=== PATIENT | male | born 2005 | race Caucasian/White ===

== ENCOUNTER 2024-12-10 23:47 | Emergency (ER) | payer MEDICAID, OTHER ==
[~2024-12-10] VITALS: Ht 182.9 cm; Wt 86.7 kg
[2024-12-11 00:30] VITALS: BP 95/64
--- NOTE | 2024-12-11 00:31 | Physician Documentation ---
History of Present Illness ~ Chief Complaint: Rash Stated Complaint: POISON OAK Time Seen by MD: 00:31 HPI Patient presents to the emergency room with chief complaint of poison oak. He states he was working in some brush few days ago and then developed poison oak. Using some Benadryl and some topical remedies. Medication Reconciliation Allergies: Coded Allergies: No Known Allergies (Unverified , 12/11/24) Past Medical History Past Medical History: No Pertinent History Past Surgical History: noncontributory Alcohol Use: None Drug Use: none Lives In: Home Occupation: child Review of Systems ROS All review of systems negative except as per HPI Physical Exam Vital Signs: Temperature: 98.2, Source: Oral, Heart Rate: 64, Respiratory Rate: 16, BP: 95/64, Pulse Oximetry: 98, Weight: 86.700 Oxygen Flow Rate: 0 Physical Exam General: Patient is awake, alert, oriented x4 in no acute distress Head: Normocephalic and atraumatic. Eyes: Conjunctival normal. EOMI. PERRL. ENT: Mucous membranes moist. Neck: Supple, trachea is midline. Chest: Clear to auscultation bilaterally without rales, rhonchi, or wheezes. There is no accessory muscle use or retractions. Cardiac: RRR without murmurs, gallops, or rubs. Skin: Patient is is covered on all four extremities and torso with poison oak some areas of blistering. No evidence of cellulitis Progress Results/Orders Results/Orders Vital Signs 12/11/24 12/11/24 00:13 00:30 Temp 98.2 Pulse 60 64 Resp 16 16 B/P (MAP) 101/55 95/64 (74) Pulse Ox 99 98 O2 Flow Rate 0 Medical Decision Making Findings Patient presents to the emergency room with rash as per HPI. Differentials include but are not limited to scabies poison oak contact dermatitis allergic reaction drug reaction. Given patient's history and physical exam symptoms are consistent with poison oak and we will treat him accordingly. ER precautions reviewed regarding signs of infection. Departure Disposition: HOME / SELF CARE / HOMELESS Impression: Primary Impression: Poison oak Condition: Stable Discharge Instructions: Poison [place] Dermatitis Additional Instructions: [id number] remedies such as topical Benadryl, calamine lotion, oatmeal baths may be of benefit. Avoid hot showers. Watch for infection. Try not to itch Referrals: NO PRIMARY CARE PROVIDER (PCP) Prescriptions Prednisone* (Prednisone*) 20 Mg Tablet 1 TAB PO DAILY for 5 Days, #5 TAB Prov: JASON MELENDEZ MD 12/11/24 Education Educated: Patient Educated regarding: diagnosis, treatment, need for follow up Signature Scribe Signature: No scribe Attestation: The note accurately reflects work and decisions made by me.Jason Melendez MD 12/11/24 00:38 JASON MELENDEZ MD Dec 11, 2024 00:31
[2024-12-11] MEDS ORDERED: PRED20TA PO (00:38)
[2024-12-11] MEDS: triamcinolone acetonide 40mg/ml inj IM ONE (01:20)
[2024-12-11] MEDS: dexamethasone sod phosphate 10mg/ml inj IM STA (01:23)
[2024-12-11 01:32] VITALS: PULSE 72; RESP 12; TEMP 98.2; O2SAT 95
== END 2024-12-11 01:27 | disposition home or self-care (01) ==
LOC: ER 23:47
DX: L23.7 Allergic contact dermatitis due to plants, except food (principal)
CPT/HCPCS: 96372; 99284; J1100; J3301; Q0163